=== PATIENT | male | born 1950 | race African-American/Black ===

== ENCOUNTER 2017-01-13 11:00 | Day surgery (SDC) | payer OTHER ==
[~2017-01-13] VITALS: Ht 175.3 cm; Wt 107.4 kg
[2017-01-13 12:36] VITALS: Ht 175.3 cm; Wt 107.4 kg
[2017-01-13] MEDS ORDERED: HYD25 PO (12:46)
[2017-01-13] MEDS ORDERED: CARV3.1260 PO (12:46)
[2017-01-13] MEDS ORDERED: ATOR40TA68 PO (12:46)
[2017-01-13] MEDS ORDERED: AMLO-147 PO (12:46)
[2017-01-13] MEDS ORDERED: LOSA100T7 PO (12:46)
[2017-01-13] MEDS ORDERED: PROPOFOL 20 ML ONE (13:02)
[2017-01-13 13:06] VITALS: BP 141/88; PULSE 61; RESP 22
--- NOTE | 2017-01-13 14:14 | GILP ---
DATE OF PROCEDURE: 01/13/2017 PREOPERATIVE DIAGNOSIS: History of colon polyps. POSTOPERATIVE DIAGNOSES: 1. Scattered diverticula throughout the colon. 2. Internal and external hemorrhoids. 3. A 3 mm flat polyp at rectosigmoid, removed by biopsy. PROCEDURE DONE: Colonoscopy, biopsy, removal of a small flat polyp. SURGEON: Alyse Sutherland MD ANESTHESIOLOGIST: Asim Vigil MD. DESCRIPTION OF PROCEDURE: The patient was put in left lateral decubitus after obtaining informed co nsent, was sedated, monitored on oximetry, EKG, blood pressure, and anesthesia was given by the anes thesiologist, Dr. Vigil. Advanced an Olympus video colonoscope all the way to cecum. Ileocecal valve, appendiceal opening id entified. Cecum, ascending colon, transverse colon showed few diverticula scattered, otherwise norm al. Descending colon, sigmoid colon, few diverticula again noted, no diverticulitis. At rectosigmo id, a 3 mm flat polyp noted. Cold biopsy polypectomy done. Then, the scope was withdrawn back in t he rectum. By retroflexion and antegrade exam, there are internal and external hemorrhoids and upon removal of the scope, the patient had no complication. PLAN: Will be to follow up as outpatient. High fiber diet. Repeat colonoscopy in 5 years. This f lat polyp is very benign looking, await for biopsy report. Follow up in 4 weeks. Dictated By: ALYSE HAMILTON Conf#: [id number] DID#: [id number] CC: BRANDON LORA MD;*EndCC*
== END 2017-01-13 13:36 | disposition home or self-care (01) ==
LOC: GIL 11:00
PROVIDERS: ATTEND Internal Medicine
DX: D12.7 Benign neoplasm of rectosigmoid junction (principal); I10 Essential (primary) hypertension; E78.5 Hyperlipidemia, unspecified; E66.9 Obesity, unspecified; Z68.35 Body mass index [BMI] 35.0-35.9, adult
CPT/HCPCS: 88305